=== PATIENT | male | born 1975 | race Caucasian/White ===

== ENCOUNTER 2018-02-28 22:25 | Emergency (ER) | payer OTHER ==
[~2018-02-28] VITALS: Ht 182.8 cm; Wt 68.0 kg
[~2018-02-28 22:25] MED LIST: Carafate1 GM PO; OMEPRAZOLE20 MG PO; ZOFRAN ODT4 MG PO
[2018-03-01 03:30] VITALS: BP 127/76
== END 2018-03-01 04:37 | disposition short-term general hospital (02) ==
LOC: ED 22:25
DX: S02.30XA Fracture of orbital floor, unspecified side, initial encounter for closed fracture (principal); S62.91XA Unspecified fracture of right hand, initial encounter for closed fracture; Z79.899 Other long term (current) drug therapy; Y04.0XXA Assault by unarmed brawl or fight, initial encounter; Y93.89 Activity, other specified; Y92.89 Other specified places as the place of occurrence of the external cause; Y99.8 Other external cause status